=== PATIENT | female | born 1995 | race Two or more races ===

== ENCOUNTER 2022-03-18 07:29 | Inpatient (IN) | payer OTHER ==
[~2022-03-18] VITALS: Ht 149.9 cm; Wt 2.7 kg
[2022-03-18] MEDS ORDERED: PRENATAL TABLE1 EAC1 PO (09:08)
== END 2022-03-20 17:53 | disposition home or self-care (01) | DRG 788 ==
LOC: OB/GYN 07:29 → LDR 07:29 → OB/GYN 20:16
PROVIDERS: ADMIT Specialist; ATTEND Specialist
PROC: 4A1HXCZ Monitoring of Products of Conception, Cardiac Rate, External Approach (ICD-10-PCS; 2022-03-18)
PROC: 10D00Z1 Extraction of Products of Conception, Low, Open Approach (ICD-10-PCS; principal; 2022-03-18 19:45)
DX: O36.8330 Maternal care for abnormalities of the fetal heart rate or rhythm, third trimester, not applicable or unspecified (principal); Z3A.39 39 weeks gestation of pregnancy; Z37.0 Single live birth; Z20.822 Contact with and (suspected) exposure to COVID-19